=== PATIENT | female | born 1970 | race Caucasian/White ===

== ENCOUNTER 2018-04-05 15:07 | Emergency (ER) | payer OTHER ==
[~2018-04-05] VITALS: Ht 165.1 cm; Wt 83.9 kg
== END 2018-04-05 19:50 | disposition home or self-care (01) ==
LOC: ER 15:07
DX: N93.8 Other specified abnormal uterine and vaginal bleeding (principal); N83.292 Other ovarian cyst, left side; N83.291 Other ovarian cyst, right side